=== PATIENT | male | born 1980 | race Native Hawaiian/Other Pacific Islander ===

== ENCOUNTER 2016-11-26 09:30 | Emergency (ER) | payer OTHER ==
[~2016-11-26] VITALS: Ht 188 cm; Wt 79.4 kg
[2016-11-26 09:25] VITALS: TEMP 98.2
[2016-11-26 10:55] LABS: PLATELET COUNT 351 K/uL (142-355)
[2016-11-26 11:16] LABS: SODIUM 140 mmol/L (136-145)
[2016-11-26 14:43] VITALS: BP 127/90
== END 2016-11-26 14:43 | disposition home or self-care (01) ==
LOC: ED 09:30
PROVIDERS: Specialist
DX: R10.31 Right lower quadrant pain (principal)
CPT/HCPCS: 36415; 80053; 80307; 81000; 85027; 96361; 96374; 99284; G0479; J1885; Q9963

== ENCOUNTER 2017-07-19 17:44 | Emergency (ER) | payer OTHER ==
[~2017-07-19] VITALS: Ht 190.5 cm; Wt 81.6 kg
[2017-07-19 19:28] VITALS: BP 118/77; TEMP 98.8
== END 2017-07-19 19:30 | disposition home or self-care (01) ==
LOC: ED 17:44
DX: L73.2 Hidradenitis suppurativa (principal)
CPT/HCPCS: 99282; J0696; J1885

== ENCOUNTER 2017-08-31 10:53 | Emergency (ER) | payer OTHER ==
[~2017-08-31] VITALS: Ht 188 cm; Wt 79.4 kg
[2017-08-31 11:11] VITALS: TEMP 98.7
[2017-08-31 12:39] LABS: PLATELET COUNT 240 K/uL (142-355)
[2017-08-31 12:51] LABS: POTASSIUM 3.7 mmol/L (3.6-5.2); SODIUM 133 mmol/L (136-145)
[2017-08-31 13:51] VITALS: BP 126/84
== END 2017-08-31 13:51 | disposition home or self-care (01) ==
LOC: ED 10:53
PROVIDERS: Specialist
PROC: 0T9B70Z Drainage of Bladder with Drainage Device, Via Natural or Artificial Opening (ICD-10-PCS; principal; 2017-08-31)
DX: N41.9 Inflammatory disease of prostate, unspecified (principal)
CPT/HCPCS: 51702; 80048; 81000; 85027; 99282

== ENCOUNTER 2017-09-05 19:40 | Emergency (ER) | payer OTHER ==
[~2017-09-05] VITALS: Ht 188 cm; Wt 79.4 kg
[2017-09-05 21:03] VITALS: BP 132/76; TEMP 98.2
== END 2017-09-05 21:05 | disposition home or self-care (01) ==
LOC: ED 19:40
DX: R33.9 Retention of urine, unspecified (principal)
CPT/HCPCS: 99283

== ENCOUNTER 2017-09-06 14:21 | Outpatient (CLI) | payer OTHER | END 2017-09-06 14:29 | disposition short-term general hospital (02) | LOC: AMB 14:21 | DX: R10.84 Generalized abdominal pain (principal); R33.8 Other retention of urine | CPT/HCPCS: A0425; A0427 ==

== ENCOUNTER 2017-09-06 14:43 | Emergency (ER) | payer OTHER ==
[~2017-09-06] VITALS: Ht 188 cm; Wt 79.4 kg
[2017-09-06 14:30] VITALS: TEMP 98
[2017-09-06 15:17] LABS: SODIUM 135 mmol/L (136-145)
[2017-09-06 16:34] VITALS: BP 118/79
== END 2017-09-06 16:41 | disposition home or self-care (01) ==
LOC: ED 14:43
PROVIDERS: Specialist
PROC: 0T9B70Z Drainage of Bladder with Drainage Device, Via Natural or Artificial Opening (ICD-10-PCS; principal; 2017-09-06)
DX: R33.9 Retention of urine, unspecified (principal)
CPT/HCPCS: 51702; 80048; 81000; 99283

== ENCOUNTER 2017-10-03 13:11 | Emergency (ER) | payer OTHER ==
[~2017-10-03] VITALS: Ht 188 cm; Wt 77.1 kg
[2017-10-03 14:35] VITALS: BP 121/85; TEMP 98.5
== END 2017-10-03 14:35 | disposition home or self-care (01) ==
LOC: ED 13:11
DX: Z46.6 Encounter for fitting and adjustment of urinary device (principal)
CPT/HCPCS: 99282

== ENCOUNTER 2019-02-15 14:35 | Emergency (ER) | payer OTHER ==
[~2019-02-15] VITALS: Ht 188 cm; Wt 83.9 kg
[2019-02-15 14:40] VITALS: TEMP 97.9
[2019-02-15] MEDS ORDERED: BUPR8SUB2 PO (15:12)
[2019-02-15 15:55] LABS: PLATELET COUNT 274 K/uL (142-355)
[2019-02-15 16:38] VITALS: BP 142/99
== END 2019-02-15 16:38 | disposition home or self-care (01) ==
LOC: ED 14:35
PROVIDERS: Family Medicine
DX: L03.114 Cellulitis of left upper limb (principal); F19.10 Other psychoactive substance abuse, uncomplicated
CPT/HCPCS: 36415; 83605; 85027; 87040; 99283; J2930

== ENCOUNTER 2019-04-04 22:34 | Emergency (ER) | payer OTHER ==
[~2019-04-04] VITALS: Ht 185.4 cm; Wt 90.3 kg
[~2019-04-04 22:34] MED LIST: BUPR8SUB2 PO
[2019-04-05 00:16] VITALS: BP 129/90; TEMP 98.4
== END 2019-04-05 00:17 | disposition home or self-care (01) ==
LOC: ED 22:34
DX: R10.9 Unspecified abdominal pain (principal)
CPT/HCPCS: 99281; 99282; J1885

== ENCOUNTER 2022-06-22 17:47 | Emergency (ER) | payer OTHER ==
[~2022-06-22] VITALS: Ht 188 cm; Wt 83.9 kg
[2022-06-22 18:49] LABS: PLATELET COUNT 240 K/uL (142-355)
[2022-06-22 18:53] LABS: POTASSIUM 2.8 mmol/L (3.6-5.2)
[2022-06-22 21:48] VITALS: BP 122/78; TEMP 97.1
== END 2022-06-22 21:48 | disposition home or self-care (01) ==
LOC: ED 17:47
PROVIDERS: Emergency Medicine
DX: K21.9 Gastro-esophageal reflux disease without esophagitis (principal); F41.8 Other specified anxiety disorders; E87.6 Hypokalemia
CPT/HCPCS: 36415; 80053; 80307; 80320; 81002; 82150; 83690; 84484; 85027; 93005; 96360; 96361; 96365; 96366; 96375; 99284; J3490

== ENCOUNTER 2022-12-06 10:17 | Emergency (ER) | payer OTHER ==
[~2022-12-06] VITALS: Ht 188 cm; Wt 90.3 kg
[2022-12-06 10:17] VITALS: TEMP 97.7
[2022-12-06 11:07] LABS: PLATELET COUNT 289 K/uL (142-355)
[2022-12-06 11:31] LABS: POTASSIUM 3.7 mmol/L (3.6-5.2)
[2022-12-06 12:00] VITALS: BP 144/89
== END 2022-12-06 12:10 | disposition home or self-care (01) ==
LOC: ED 10:17
PROVIDERS: Family Medicine
PROC: 0T9B70Z Drainage of Bladder with Drainage Device, Via Natural or Artificial Opening (ICD-10-PCS; principal; 2022-12-06)
DX: R33.8 Other retention of urine (principal)
CPT/HCPCS: 51702; 80053; 81002; 85027; 99283